=== PATIENT | male | born 1970 | race Two or more races ===

== ENCOUNTER 2023-12-09 10:34 | Emergency (ER) | payer MEDICAID ==
[~2023-12-09] VITALS: Ht 180.3 cm; Wt 94.1 kg
[2023-12-09 10:38] VITALS: BP 177/110; TEMP 98.3
[2023-12-09] MEDS ORDERED: IPRA0.2S49 NEB (10:43)
[2023-12-09] MEDS ORDERED: IPRAHFA IH (10:43)
[2023-12-09 12:10] VITALS: PULSE 93; RESP 18; O2SAT 97
[2023-12-09] MEDS: IPRATROPIUM BROMIDE HFA 17 MCG/PUFF 12.9 GM INHALER IH ONE (12:10)
[2023-12-09 12:16] VITALS: PULSE 91; RESP 18; O2SAT 97
[2023-12-09] MEDS: IPRATROPIUM BROMIDE 0.5 MG/2.5 ML NEB SOLUTION NEB ONE (12:16)
[2023-12-09 12:31] VITALS: PULSE 81; RESP 18; O2SAT 100
== END 2023-12-09 13:40 | disposition home or self-care (01) ==
LOC: EMS 10:34
DX: J44.1 Chronic obstructive pulmonary disease with (acute) exacerbation (principal); Z88.8 Allergy status to other drugs, medicaments and biological substances
CPT/HCPCS: 94640; 99283; J3535